=== PATIENT | male | born 1990 | race Caucasian/White ===

== ENCOUNTER → 2023-08-06 13:11 | Outpatient (REF) | payer BC, SELFPAY | LOC: RAD 13:11 | PROVIDERS: ATTENDING PHYSICIAN Physician Assistant Medical | DX: M25.552 Pain in left hip (principal) | CPT/HCPCS: 73502 ==

== ENCOUNTER → 2024-03-17 06:17 | Day surgery (SDC) | payer BC, SELFPAY | LOC: GI 06:17 | PROVIDERS: ATTENDING PHYSICIAN Internal Medicine Gastroenterology | DX: R19.4 Change in bowel habit (principal); K64.8 Other hemorrhoids | CPT/HCPCS: 45380; 88305 ==